=== PATIENT | female | born 1940 | race Two or more races ===

== ENCOUNTER 2023-01-06 13:20 | Outpatient (CLI) | payer OTHER | END 2023-01-06 13:22 | disposition home or self-care (01) | LOC: NUCLEAR 13:20 | DX: M81.0 Age-related osteoporosis without current pathological fracture (principal) ==

== ENCOUNTER 2023-07-25 06:09 | Inpatient (IN) | payer OTHER ==
[~2023-07-25] VITALS: Ht 152.4 cm; Wt 49.9 kg
[2023-07-25] MEDS ORDERED: PRAVASTATIN SOD10 MG PO (06:29)
[2023-07-25] MEDS ORDERED: LANTUS SOL100 UNIT/1 SQ (06:29)
[2023-07-25] MEDS ORDERED: COZAAR50 MG PO (06:29)
[2023-07-25] MEDS ORDERED: JANUVIA25 MG PO (06:30)
[2023-07-25] MEDS ORDERED: RINGERS SOLUTION,LACTATED 1,000 ML IV STA (08:20)
[2023-07-25 08:54] LABS: HEMATOCRIT 41.7 % (36.0-45.00); HEMOGLOBIN 14.1 g/dL (12.0-15.00); MEAN CELL VOLUME 90.5 fL (80.00-100.00); MEAN CORPUSCULAR HEMOGLOBIN 30.5 pg (27.00-32.0); MEAN CORPUSCULAR HGB CONC 33.8 g/dl (32.0-36.0); PLATELET COUNT 229 K/uL (150-450); RED BLOOD COUNT 4.61 M/uL (4.00-6.00); RED CELL DISTRIBUTION WIDTH 13.5 % (11.5-14.5)
[2023-07-25 09:20] LABS: CALCIUM 10.7 mg/dL (8.5-10.1); CREATININE SERUM 0.77 mg/dL (0.55-1.02); GFR 71.95; POTASSIUM 3.89 mEq/L (3.5-5.1)
[2023-07-25 09:22] LABS: PH,URINE 5.5 (5.0-8.0); URINE APPEARANCE Cloudy; URINE BILIRRUBIN Negative (NEGATIVE); URINE BLOOD Moderate; URINE COLOR Yellow; URINE LEUKOCYTE Small; URINE NITRATE Positive; URINE PROTEIN Trace (NEGATIVE)
[2023-07-25 09:24] LABS: URINE EPITHELIAL CELLS 7.5 uL (0.0-38.8); URINE RBC 108.2 uL (0.0-20.8); URINE WBC 393.4 uL (0.0-23.2)
[2023-07-25 09:41] LABS: URINE BACTERIA > 9821.5 uL (0.0-1933); URINE GLUCOSE >=1000 MG/DL (NEGATIVE)
[2023-07-25 10:09] LABS: INR 1.04; PARTIAL THROMBOPLASTIN TIME 31.3 SECONDS (22.0-34.0); PROTHROMBIN TIME 10.9 SECONDS (9.0-11.5)
[2023-07-25] MEDS ORDERED: VANCOMYCIN HCL 1,000 MG VIAL IV ONE (18:00)
[2023-07-25] MEDS ORDERED: ONDANSETRON HCL 2 MG/ML VIAL IV PRN (18:30)
[2023-07-25] MEDS ORDERED: SODIUM CHLORIDE 0.45 % 1,000 ML IV SCH (18:30)
[2023-07-25] MEDS ORDERED: MORPHINE SULFATE 4 MG/ML CARTRIDGE IV PRN (18:30)
[2023-07-25] MEDS ORDERED: MORPHINE SULFATE 2 MG/ML CARTRIDGE IV NR (18:30)
[2023-07-25 19:51] LABS: HEMATOCRIT 39.7 % (36.0-45.00); HEMOGLOBIN 13.2 g/dL (12.0-15.00); RED BLOOD COUNT 4.45 M/uL (4.00-6.00)
[2023-07-25] MEDS ORDERED: VANCOMYCIN HCL 1,000 MG in 0.9 % SODIUM CHLORIDE 250 ML IV SCH (21:00)
[2023-07-25] MEDS ORDERED: cloNIDine HCL 0.2 MG TABLET PO STA (21:23)
[2023-07-25] MEDS ORDERED: ENALAPRILAT DIHYDRATE 1.25 MG/ML VIAL IV STA (21:23)
[2023-07-25] MEDS ORDERED: VANCOMYCIN HCL 1,000 MG VIAL ONE (21:28)
[2023-07-26] MEDS ORDERED: cloNIDine HCL 0.2 MG TABLET PO STA (00:47)
[2023-07-26] MEDS ORDERED: hydrALAZINE HCL 20 MG VIAL ONE (03:39)
[2023-07-26] MEDS ORDERED: hydrALAZINE HCL 20 MG VIAL IV STA (03:52)
[2023-07-26] MEDS ORDERED: LORazepam 2 MG/ML VIAL IV STA ×3 (04:13→04:51)
[2023-07-26] MEDS ORDERED: LORazepam 2 MG/ML VIAL ONE (04:31)
[2023-07-26] MEDS ORDERED: hydrALAZINE HCL 20 MG VIAL IV SCH (08:00)
[2023-07-26] MEDS ORDERED: TRAMADOL HCL 50 MG TABLET PO PRN (08:00)
[2023-07-26] MEDS ORDERED: CARVEDILOL 6.25 MG TABLET PO SCH (09:00)
[2023-07-26] MEDS ORDERED: LISINOPRIL 20 MG TABLET PO SCH (09:00)
[2023-07-26] MEDS ORDERED: RIVAROXABAN 10 MG TAB PO SCH (09:00)
[2023-07-26] MEDS ORDERED: LOSARTAN POTASSIUM 50 MG TABLET PO SCH (09:00)
[2023-07-27 06:19] LABS: HEMOGLOBIN 11.4 g/dL (12.0-15.00); MEAN CELL VOLUME 88.9 fL (80.00-100.00); MEAN CORPUSCULAR HEMOGLOBIN 29.8 pg (27.00-32.0); MEAN CORPUSCULAR HGB CONC 33.6 g/dl (32.0-36.0); PLATELET COUNT 203 K/uL (150-450); RED BLOOD COUNT 3.83 M/uL (4.00-6.00); RED CELL DISTRIBUTION WIDTH 13.6 % (11.5-14.5)
[2023-07-27] MEDS ORDERED: TRAMADOL HCL50 MG PO (06:28)
[2023-07-27] MEDS ORDERED: BACTRIM DS TAB1 EACH PO (06:28)
[2023-07-27] MEDS ORDERED: XARELTO10 MG PO (06:28)
[2023-07-27] MEDS ORDERED: LISINOPRIL 20 MG TABLET PO SCH (09:00)
== END 2023-07-27 17:18 | disposition home or self-care (01) | DRG 482 ==
LOC: ER 06:09 → SEC-K 15:16 → SURG 20:16 → SURH 07-26 18:21 → SURG 07-26 18:37
PROVIDERS: General Practice; Orthopaedic Surgery Sports Medicine; ADMIT Specialist; ATTEND Specialist
PROC: 0QS634Z Reposition Right Upper Femur with Internal Fixation Device, Percutaneous Approach (ICD-10-PCS; principal; 2023-07-25 17:30)
DX: S72.001A Fracture of unspecified part of neck of right femur, initial encounter for closed fracture (principal); I10 Essential (primary) hypertension; E11.9 Type 2 diabetes mellitus without complications; Z79.4 Long term (current) use of insulin